=== PATIENT | female | born 1985 | race Caucasian/White ===

== ENCOUNTER → 2019-08-05 08:35 | Outpatient (CLI) | payer BC, SELFPAY ==
[2019-08-05] VITALS (9 sets, daily range): BP systolic 108–121; BP diastolic 60–73; PULSE 67–80; RESP 16–18; TEMP 36.2–36.6; O2SAT 100
== END ==
DX: D64.81 Anemia due to antineoplastic chemotherapy (principal); T45.1X5A Adverse effect of antineoplastic and immunosuppressive drugs, initial encounter
CPT/HCPCS: 36415; 36430; 86850; 86900; 86901; 86920; 86922; J7040; P9016; A4216

== ENCOUNTER → 2019-08-26 10:05 | Outpatient (CLI) | payer BC, SELFPAY ==
[2019-08-26] VITALS (8 sets, daily range): BP systolic 114–136; BP diastolic 66–87; PULSE 64–83; RESP 16–18; TEMP 36.2–36.6; O2SAT 96–98; BMI 31.6
[2019-08-26] MEDS: 0.9 % NaCl (Sterile) Posiflush 10 mL IV (11:07)
[2019-08-26] MEDS: DiphenhydrAMINE 25 MG Capsule PO (11:13)
[2019-08-26] MEDS: Acetaminophen 325 MG Tablet 650 MG PO (11:14)
[2019-08-26] MEDS: 0.9% NaCl VAD Flush IV (15:45)
== END ==
DX: D64.9 Anemia, unspecified (principal)
CPT/HCPCS: 36415; 36430; 86850; 86900; 86901; 86920; 86922; J7040; P9016; A4216

== ENCOUNTER 2019-09-01 16:21 | Day surgery (SDC) | payer BC, SELFPAY ==
[2019-08-26 10:59] VITALS: BMI 31.6
[2019-09-01 16:23] VITALS: BP 146/86; PULSE 94; PULSE 98; RESP 17; TEMP 36.9; O2SAT 99; BMI 32.1
--- NOTE | 2019-09-01 16:38 | ED.VIS.GEN ---
History of Present Illness Chief Complaint: Foreign Body Narrative: Patient is a 34-year-old female who presents with an esophageal impaction. She was eating a sandwich last night. She has felt like this is stuck in her throat. Anytime she tries to eat or drink today she regurgitates this. No history of prior similar symptoms. She is otherwise recently been well. No fevers or cough. No chest pain or shortness of breath. Is have a history of breast cancer and her last chemotherapy treatment was August 03. Her most recent treatment was held due to low counts. Past Medical History - Allergies and Home Meds Allergies/Adverse Reactions: Allergies No Known Allergies Allergy (Verified 09/01/19 16:22) Primary Care Physician: Care Physician,No Primary [Primary Care Provider] - Past Medical History: - - Breast cancer, depression/anxiety Review of Systems All systems negative except as indicated General: Denies: Fever Eyes: Denies: Visual changes - bilaterally ENT: Denies: Bilateral ear pain Cardiovascular: Denies: Chest pain Respiratory: Denies: Dyspnea Gastrointestinal: Reports: Vomiting Musculoskeletal: Denies: Myalgias, Arthralgias Skin: Denies: Rash Neurological: Denies: Headache Physical Exam Vital Signs/Narrative: Vital Signs Temp Pulse Resp BP Pulse Ox 09/01/19 16:23 98.5 F 98 17 146/86 H 99 General: Well nourished, Well developed Head: Normocephalic ENT: - - Oropharynx clear, clear speech Neck: Supple Cardiovascular: Regular rate, Regular rhythm Respiratory: No distress, CTA bilaterally Abdomen: Soft, Nontender Skin: Normal color Neurological: Alert Psychological: Normal affect Diagnostic/Tx/Re-eval Laboratory Results 09/01/19 09/01/19 17:10 17:10 WBC 10.6 RBC 3.11 L Hgb 9.8 L Hct 28.5 L MCV 91.6 MCH 31.5 MCHC 34.4 RDW Std Deviation 59.8 H RDW Coeff of Ollie 19.8 H Plt Count 104 L MPV 9.5 Immature Gran % (Auto) 0.600 Neut % (Auto) 90.8 H Lymph % (Auto) 4.8 L [place] % (Auto) 3.7 Eos % (Auto) 0.0 Baso % (Auto) 0.1 Absolute Neuts (auto) 9.7 H Absolute Lymphs (auto) 0.51 L Nucleated RBC % 0 Differential Comment SEE COMMENT Platelet Estimate MOD DEC RBC Morphology N CHROM Hypochromasia RARE Anisocytosis RARE Macrocytosis RARE Sodium 140 Potassium 3.2 L Chloride 111 H Carbon Dioxide 23.0 Anion Gap 6 BUN 17 Creatinine 0.71 Estim Creat Clear Calc 104.52 Est GFR (MDRD) Af Amer 120 Est GFR (MDRD) Non-Af 99 BUN/Creatinine Ratio 23.8 H Glucose 119 H Calcium 8.8 - Medical Decision Making Labs unremarkable except hemoglobin 9.8 and platelets 104. I obtain this given her reportedly recent low counts. Patient was treated with glucagon without resolution of esophageal impaction. I spoke to surgery on-call, Dr. Patel who will contact the team and plan is for endoscopy. ED Disposition - Plan for ED Patient: Diagnosis: Esophageal obstruction due to food impaction Referrals: Care Physician,No Primary [Primary Care Provider] -
[2019-09-01 17:15] LABS: Absolute Lymphocyte Count 0.51 X10^3/uL (0.83-4.51); Absolute Neutrophil Count 9.7 X10^3/uL (2.0-7.7); Basophil# 0.01 X10^3/uL; Basophil% 0.1 % (0-1); Hematocrit 28.5 % (37-47); Hemoglobin 9.8 g/dL (12.0-15.0); Lymphocyte # 0.51 X10^3/ul (4.0); Lymphocyte % 4.8 % (19-41); Mean Corp Hgb Conc 34.4 g/dL (32-36); Mean Corpuscular Hgb 31.5 pg (27.0-32.0); Mean Corpuscular Volume 91.6 fL (81-99); Mean Platelet Vol. 9.5 fl (6.2-12.0); Monocyte# 0.39 X10^3/uL; Monocyte% 3.7 % (0-10); NRBC Flagged by Analyzer 0 % (0-5); Neutrophil # 9.65 X10^3/uL (2.7-7.7); Neutrophil % 90.8 % (47-70); POSITIVE DIFFERENTIAL YES; Platelet Count 104 K/mm3 (150-450); RBC Distribution Width CV 19.8 % (11.6-14.6); RBC Distribution Width SD 59.8 fl (35.1-43.9); Red Blood Count 3.11 M/mm3 (4.2-5.4); White Blood Count 10.6 K/mm3 (4.4-11.0)
[2019-09-01] MEDS: Ondansetron 4 MG/2 ML Vial IV (17:15)
[2019-09-01] MEDS: Glucagon 1 MG/ML Syringe IV (17:19)
[2019-09-01 17:21] LABS: Differential Indicated SCAN CRITERIA MET
[2019-09-01 17:29] LABS: Anion Gap 6 (5-15); BUN 17 mg/dL (7-18); BUN/Creat Ratio 23.8 RATIO (10-20); Calcium,Total 8.8 mg/dL (8.5-10.1); Chloride 111 mmol/L (98-107); Creatinine, Serum 0.71 mg/dL (0.55-1.02); EST Glomerular Filtration Rate 99 mL/min (>60); Est Glom Filt Rate - Afr Amer 120 mL/min (>60); Estimated Creatinine Clearance 104.52 ml/min; Glucose 119 mg/dL (74-106); Potassium 3.2 mmol/L (3.5-5.1); Sodium Level 140 mmol/L (136-145)
[2019-09-01 17:51] LABS: Anisocytosis RARE; Hypochromasia RARE; Macrocytosis RARE; Platelet Estimate MOD DEC (ADEQ); Red Cell Morphology N CHROM NORMAL (NORM C&C)
[2019-09-01 19:10] VITALS: BP 122/66; BP 146/86; PULSE 80; RESP 18; TEMP 37.1; O2SAT 97
--- NOTE | 2019-09-01 19:12 | PCM.HP.STD ---
Problem List (1) Esophageal obstruction due to food impaction Status: Acute History of Present Illness Date of Admission: 09/01/19 Patient is a 34-year-old female who presents with an esophageal impaction. She was eating a sandwich last night. She has felt like this is stuck in her throat. Anytime she tries to eat or drink today she regurgitates this. No history of prior similar symptoms. She is otherwise recently been well. No fevers or cough. No chest pain or shortness of breath. Is have a history of breast cancer and her last chemotherapy treatment was August 03. Her most recent treatment was held due to low counts. Past Medical History Allergies No Known Allergies Allergy (Verified 09/01/19 16:22) Home Medications: Ambulatory Orders Medication Instructions Recorded Gabapentin [Neurontin] 300 mg PO TID 08/26/19 Sertraline HCl [Zoloft] 100 mg PO QHS 08/26/19 Trazodone HCl 50 mg PO QHS 08/26/19 Smoking Status: Never smoker Review of Systems Gastrointestinal: Reports: Abdominal Pain, Nausea VTE Information - Inpt Only VTE Present on Admission: No VTE Mechan Device Prophylaxis: None VTE Pharm Prophylaxis ordered?: No Reason prophylaxis not ordered:: Treatment Not Indicated Patient Problems: Active and Suspected Problems Esophageal obstruction due to food impaction (Acute) - Physical Exam Vitals/I&O's: Vital Signs Temp Pulse Resp BP Pulse Ox 98.5 F 98 17 146/86 H 99 09/01/19 16:23 09/01/19 16:23 09/01/19 16:23 09/01/19 16:23 09/01/19 16:23 Oxygen Delivery Method Room Air Weight: 199 lb 4.766 oz Body Mass Index (BMI) 32.1 General: Alert, Oriented x3 Lungs: Clear to auscultation Cardiovascular: Regular rate, Regular Rhythm, No murmurs Abdomen: Bowel Sounds Present, Soft, Non Tender, Non-Distended Laboratory Results 09/01/19 17:10: WBC 10.6, RBC 3.11 L, Hgb 9.8 L, Hct 28.5 L, MCV 91.6, MCH 31.5, MCHC 34.4, RDW Std Deviation 59.8 H, RDW Coeff of Ollie 19.8 H, Plt Count 104 L, MPV 9.5, Immature Gran % (Auto) 0.600, Neut % (Auto) 90.8 H, Lymph % (Auto) 4.8 L, [place] % (Auto) 3.7, Eos % (Auto) 0.0, Baso % (Auto) 0.1, Absolute Neuts (auto) 9.7 H, Absolute Lymphs (auto) 0.51 L, Nucleated RBC % 0, Differential Comment SEE COMMENT, Platelet Estimate MOD DEC, RBC Morphology N CHROM, Hypochromasia RARE, Anisocytosis RARE, Macrocytosis RARE 09/01/19 17:10: Sodium 140, Potassium 3.2 L, Chloride 111 H, Carbon Dioxide 23.0, Anion Gap 6, BUN 17, Creatinine 0.71, Estim Creat Clear Calc 104.52, Est GFR (MDRD) Af Amer 120, Est GFR (MDRD) Non-Af 99, BUN/Creatinine Ratio 23.8 H, Glucose 119 H, Calcium 8.8 Assessment/Plan All Active Problems Esophageal obstruction due to food impaction (Acute) Plan will be to perform an EGD and removal of foreign body to esophagus. Risk benefits to include bleeding possible injury to the esophagus have been reviewed with the patient the patient agrees to proceed.
[2019-09-01 19:15] VITALS: BP 118/74; BP 146/86; PULSE 79; RESP 18; O2SAT 97
[2019-09-01 19:20] VITALS: BP 124/66; BP 146/86; PULSE 71; RESP 18; O2SAT 98
[2019-09-01 19:25] VITALS: BP 110/65; BP 146/86; PULSE 73; RESP 18; TEMP 36.7; O2SAT 98
[2019-09-01 19:34] VITALS: BP 146/86
--- NOTE | 2019-09-23 12:25 | OP.EGD_ITS ---
Patient Name: Denise Arias Procedure Date: 09/01/2019 6:46 PM Date of : 1985 Age: 34 Procedure: Upper GI endoscopy Indications: Foreign body in the esophagus Providers: Harrison Patel MD Medicines: See the Anesthesia note for documentation of the administered medications Patient Profile: This is a 34 year old female. Refer to note in patient chart for documentation of history and physical. Complications: No immediate complications. Procedure: Pre-Anesthesia Assessment: - Prior to the procedure, a History and Physical was performed, and patient medications and allergies were reviewed. The patient's tolerance of previous anesthesia was also reviewed. The risks and benefits of the procedure and the sedation options and risks were discussed with the patient. All questions were answered, and informed consent was obtained. Prior Anticoagulants: The patient has taken no previous anticoagulant or antiplatelet agents. ASA Grade Assessment: II - A patient with mild systemic disease. After reviewing the risks and benefits, the patient was deemed in satisfactory condition to undergo the procedure. After obtaining informed consent, the endoscope was passed under direct vision. Throughout the procedure, the patient's blood pressure, pulse, and oxygen saturations were monitored continuously. The gastroscope was introduced through the mouth, and advanced to the second part of duodenum. The upper GI endoscopy was accomplished without difficulty. The patient tolerated the procedure well. Scope In: 7:01:39 PM Scope Out: 7:03:25 PM Total Procedure Duration Time 0 hours 1 minute 46 seconds Findings: Localized moderate erythema was found in the distal esophagus. No biopsies or other specimens were collected for this exam. With the anesthesia the food bolus easily passed into the stomach with just gentle air pressure. The distal esophagus did not have any signs of bleeding but did have some localized erythema most likely secondary to the food. Food (residue) was found on the greater curvature of the stomach. No biopsies or other specimens were collected for this exam. The examined duodenum was normal. No biopsies or other specimens were collected for this exam. Impression: - Erythema in the distal esophagus. No specimens collected. - Food (residue) in the stomach. No specimens collected. - Normal examined duodenum. No specimens collected. Recommendation: - Discharge patient to home. - Resume previous diet. - Continue present medications. - Repeat upper endoscopy (date not yet determined) for surveillance. - Return to primary care physician in 1 week. Procedure Code(s): --- Professional --- 71203, Esophagogastroduodenoscopy, flexible, transoral; diagnostic, including collection of specimen(s) by brushing or washing, when performed (separate procedure) Diagnosis Code(s): --- Professional --- K22.8, Other specified diseases of esophagus T18.108A, Unspecified foreign body in esophagus causing other injury, initial encounter CPT copyright 2017 [employer]. All rights reserved. The codes documented in this report are preliminary and upon nurse orthopedic review may be revised to meet current compliance requirements. MD Harrison Neil MD 09/01/2019 7:11:19 PM This report has been signed electronically. Number of Addenda: 0 Note Initiated On: 09/01/2019 6:46 PM
--- NOTE | 2019-09-23 12:26 | OP.CCLET_ITS ---
09/23/2019 No Primary Care Physician Re : Upper GI endoscopy procedure for Denise Arias Dear Care Physician This procedure was performed on Sunday, September 01, 2019. My impressions and recommendations are as follows: Impressions : - Erythema in the distal esophagus. No specimens collected. - Food (residue) in the stomach. No specimens collected. - Normal examined duodenum. No specimens collected. Recommendations : - Discharge patient to home. - Resume previous diet. - Continue present medications. - Repeat upper endoscopy (date not yet determined) for surveillance. - Return to primary care physician in 1 week. My findings are described in the full procedure note, which is enclosed. If I can be of further assistance, please feel free to contact me at Doctor phone number(s): , Fax: [phone], Work: . Sincerely, MD Harrison Neil MD 09/01/2019 7:11:19 PM This report has been signed electronically.
== END 2019-09-01 19:39 | disposition home or self-care (01) ==
LOC: ED 16:45 → SDC 18:42 → AC 18:45
PROVIDERS: Emergency Provider Emergency Medicine; Visit Provider Surgery
PROC: 0DJ08ZZ Inspection of Upper Intestinal Tract, Via Natural or Artificial Opening Endoscopic (ICD-10-PCS; CPT 43235; principal; 2019-09-01 19:00)
DX: K22.8 Other specified diseases of esophagus (principal); T18.128A Food in esophagus causing other injury, initial encounter; Z85.3 Personal history of malignant neoplasm of breast; F32.9 Major depressive disorder, single episode, unspecified; F41.9 Anxiety disorder, unspecified
CPT/HCPCS: 43235; 36591; 80048; 85025; 99283; A4216; J1610; J2405

== ENCOUNTER 2019-09-08 10:16 | Emergency (ER) | payer BC, SELFPAY ==
[2019-09-08 10:20] VITALS: BP 126/79; PULSE 92; RESP 16; TEMP 36.4; O2SAT 100; BMI 31.4
--- NOTE | 2019-09-08 10:44 | ED.DCSUM_ITS ---
- ER Visit Summary Date of Service: 09/08/19 Chief Complaint: Esophageal impaction History of Present Illness: The patient is a 34 F with no primary care physician. She has a history of breast cancer and sees an oncologist at the main campus at [facility]. She gets chemo every 3 weeks. She had radiation from November 2018 to December 2018. Patient reports that 1 week ago she had what was thought to be an esophageal impaction was seen in the emerge department taken for endoscopy that showed no impaction. She reports that she ate salad and poss at 6 PM yesterday. There was no meat. She was doing fine until 3:00 this morning when she began having pain with swallowing. She states that this is worse and she is now been nausea and vomited 4 times. She reports that there is been a small amount of blood in her emesis. However, she also reports that there is a's blood when she blows her nose as well. Patient denies any difficulty swallowing in between these 2 episodes. She has never had anything like this before. Physical Examination: Vitals: Stable. Afebrile. General: Well-nourished and well-developed. Head: Normocephalic atraumatic. Neck: Supple, no lymphadenopathy. No JVD. Nontender. Cardiovascular: Regular rate and rhythm. No murmurs. Respiratory: No respiratory distress. Clear to auscultation bilaterally. Abdominal: Soft, nontender, nondistended, normal bowel sounds. No guarding, rebound, or peritoneal signs. Back: Nontender. Extremities: Nontender, no edema. Skin: Normal color, no rash. Neurologic: Alert and oriented ?3. Cranial nerves II through XII are intact. Normal strength and sensation. Psych: Normal affect. Emergency Department Course and Treatment: Upon arrival the patient was discussed with Dr. Patel who did the endoscopy the last week. He reports the patient did not have a stricture or narrowing that would require dilation. Suggest trying a GI cocktail. Patient was given that and Zofran here. She is been able to tolerate p.o. without any difficulty. I did discuss the patient possibility of candidal esophagitis. She is on chemo. She was recently on antibiotics. She was given a dose of Diflucan p.o. as well. Treatment Plan: Patient will be discharged on Carafate, Prilosec, Zofran, and Diflucan. Instructed to follow-up with Dr. Patel in 1 to 2 weeks if not improving. Return to the emergency department for any worsening symptoms. Disposition: To home in improved and stable condition. Impression: 1. Esophagitis. This note was generated with [employer] dictation software. It may contain incorrect words, spelling, and punctuation that were not noted in review of the chart prior to signing ED Disposition - Plan for ED Patient: Instructions: Esophagitis, ED YOVANY ESOPHAGITIS Prescriptions: Sucralfate [Carafate] 1 gm PO 4X/DAY #30 tab Fluconazole [Diflucan] 200 mg PO DAILY #21 tab Omeprazole [Prilosec] 20 mg PO DAILY #30 cap Ondansetron [Zofran Odt] 4 mg PO Q8H PRN PRN #10 tab PRN Reason: Nausea Referrals: Harrison Patel MD [STAFF PHYSICIAN] - 10-14 Days if not better
[2019-09-08] MEDS: Mag Hydrox/Al Hydrox/Simeth 30 ML UDC PO (11:12)
[2019-09-08] MEDS: Ondansetron 4 MG/2 ML Vial IV (11:12)
[2019-09-08] MEDS: Fluconazole 100 MG Tablet 400 MG PO (11:19)
[2019-09-08 12:20] VITALS: BP 128/81; PULSE 72; RESP 18; O2SAT 99
== END 2019-09-08 12:21 | disposition home or self-care (01) ==
LOC: ED 11:21
PROVIDERS: Emergency Provider Emergency Medicine
DX: K20.9 Esophagitis, unspecified (principal); C50.919 Malignant neoplasm of unspecified site of unspecified female breast
CPT/HCPCS: 36591; 96374; 96375; 96376; 99285; J7030; J1610; J2405

== ENCOUNTER → 2019-11-11 10:21 | Outpatient (CLI) | payer BC, SELFPAY ==
[2019-11-12] VITALS (7 sets, daily range): BP systolic 110–127; BP diastolic 54–75; PULSE 67–89; RESP 16–18; TEMP 36.6–36.8; O2SAT 98–100; BMI 31.4
[2019-11-12] MEDS: DiphenhydrAMINE 25 MG Capsule PO (10:52)
[2019-11-12] MEDS: 0.9 % NaCl (Sterile) Posiflush 10 mL IV (10:52)
[2019-11-12] MEDS: Acetaminophen 325 MG Tablet 650 MG PO (10:52)
== END ==
DX: C50.911 Malignant neoplasm of unspecified site of right female breast (principal)
CPT/HCPCS: 36430; 36591; 86850; 86900; 86901; 86920; 86922; J7040; P9016; A4216

== ENCOUNTER 2020-01-20 20:46 | Emergency (ER) | payer BC, SELFPAY ==
[2019-11-12 10:21] VITALS: BMI 31.4
[2020-01-20 20:47] VITALS: BP 136/81; PULSE 128; RESP 18; TEMP 36.6; O2SAT 100; BMI 31.4
--- NOTE | 2020-01-20 21:07 | ED.DCSUM_ITS ---
History of Present Illness Chief Complaint: Fever Informant: Patient Onset: Days Context: Gradual Onset Current Severity: Mild Maximum Severity: Moderate Narrative: She presents with fever, headache, body aches, nausea for the past 4 days. She reports fevers been up to 102. She does have a history of breast cancer and is current on immunotherapy and chemotherapy. Last chemotherapy treatment was approximately 10 days ago. Patient states she had similar symptoms in late November. She was admitted at the [facility] in [place]. After 4 days of antibiotics her symptoms seem to improve. No definitive source of infection was ever identified on that visit. - Past Medical History (1) Breast cancer Status: Chronic (2) Depression Status: Chronic Past Medical History - Allergies and Home Meds Allergies/Adverse Reactions: Allergies No Known Allergies Allergy (Verified 09/08/19 10:17) Primary Care Physician: [facility] Doctor,Out of [NON-STAFF] - Surgical History: - - Bilateral mastectomy Smoking Status: Never smoker Review of Systems General: Reports: Fever Eyes: Denies: Visual changes - bilaterally ENT: Denies: Bilateral ear pain Cardiovascular: Denies: Chest pain Respiratory: Reports: Cough - Normal cough. Denies: Dyspnea Gastrointestinal: Reports: Nausea. Denies: Abdominal pain Musculoskeletal: Reports: Myalgias Skin: Denies: Rash Neurological: Reports: Headache. Denies: Parasthesia, Numbness Hematologic: Denies: Easy bruising, Easy bleeding Allergy: Denies: Uticaria Physical Exam Vital Signs/Narrative: Vital Signs Temp Pulse Resp BP Pulse Ox 01/20/20 20:47 97.8 F 128 H 18 136/81 H 100 Inital Vital Signs reviewed: Yes General: Well nourished, Well developed Head: Normocephalic ENT: Moist mucous membranes Neck: Supple Cardiovascular: Regular rate, Regular rhythm Respiratory: No distress, CTA bilaterally Abdomen: Soft, Nontender Extremities: Nontender Skin: Normal color Neurological: Alert, Oriented x3, Normal Strength, Normal Sensation Psychological: Normal affect Diagnostic/Tx/Re-eval Impressions Chest X-Ray 01/20/20 21:40 IMPRESSION: Elevated left diaphragm with overlying lung atelectasis. Left subclavian Port-A-Cath terminates in the proximal superior vena cava. Tubing artifact over the left upper and lower lung zone. Electronically Signed: Telma Langston MD at 22:05 EDT , Service support , 01/20/20 21:40 Chest 1 View (Portable) [RAD] Stat Laboratory Results 01/20/20 01/20/20 01/20/20 21:15 21:39 21:39 WBC 8.3 RBC 2.86 L Hgb 9.2 L Hct 28.0 L MCV 97.9 MCH 32.2 H MCHC 32.9 RDW Std Deviation 64.1 H RDW Coeff of Ollie 18.2 H Plt Count 380 MPV 8.7 Immature Gran % (Auto) 0.500 Neut % (Auto) 77.8 H Lymph % (Auto) 7.8 L [place] % (Auto) 12.6 H Eos % (Auto) 1.2 Baso % (Auto) 0.1 Absolute Neuts (auto) 6.5 Absolute Lymphs (auto) 0.65 L Nucleated RBC % 0 Differential Comment SCANNED Sodium 138 Potassium 3.2 L Chloride 107 Carbon Dioxide 25.0 Anion Gap 6 BUN 11 Creatinine 0.77 Estim Creat Clear Calc 96.37 Est GFR (MDRD) Af Amer 111 Est GFR (MDRD) Non-Af 91 BUN/Creatinine Ratio 14.4 Glucose 125 H Lactic Acid Calcium 8.4 L Total Bilirubin 0.50 AST 17 ALT 13 Alkaline Phosphatase 87 Total Protein 8.1 Albumin 3.3 Globulin 4.8 H Albumin/Globulin Ratio 0.7 L Urine Color Urine Clarity Urine pH Ur Specific [place] Urine Protein Urine Glucose (UA) Urine Ketones Urine Occult Blood Urine Nitrite Urine Bilirubin Urine Urobilinogen Ur Leukocyte Esterase Urine RBC Urine WBC Ur Squamous Epith Cells Urine Bacteria Urine Mucus COVID-19 (SHERLY) Negative 01/20/20 01/20/20 21:39 23:00 WBC RBC Hgb Hct MCV MCH MCHC RDW Std Deviation RDW Coeff of Ollie Plt Count MPV Immature Gran % (Auto) Neut % (Auto) Lymph % (Auto) [place] % (Auto) Eos % (Auto) Baso % (Auto) Absolute Neuts (auto) Absolute Lymphs (auto) Nucleated RBC % Differential Comment Sodium Potassium Chloride Carbon Dioxide Anion Gap BUN Creatinine Estim Creat Clear Calc Est GFR (MDRD) Af Amer Est GFR (MDRD) Non-Af BUN/Creatinine Ratio Glucose Lactic Acid 1.3 Calcium Total Bilirubin AST ALT Alkaline Phosphatase Total Protein Albumin Globulin Albumin/Globulin Ratio Urine Color Yellow Urine Clarity Clear Urine pH 6.0 Ur Specific [place] 1.010 Urine Protein 30 H Urine Glucose (UA) Normal Urine Ketones Negative Urine Occult Blood 50 H Urine Nitrite Negative Urine Bilirubin Negative Urine Urobilinogen Normal Ur Leukocyte Esterase 25 H Urine RBC 0 SEEN Urine WBC 0 SEEN Ur Squamous Epith Cells 0 SEEN Urine Bacteria 0 SEEN Urine Mucus RARE COVID-19 (SHERLY) - Medical Decision Making Patient did develop a fever here of 101.1. She was given p.o. Tylenol. Blood cultures are pending. Covid test is negative. White count is normal with a slight left shift. Chest x-ray shows no acute findings. I spoke with the patient's oncologist, Dr. Boggs at [facility]. She states that if the patient is more comfortable would be reasonable to observe her overnight and repeat her lab work in the morning. Initial blood culture should be back tomorrow. She advises that if the patient looks well she is comfortable holding antibiotics at this time. After speaking with the patient she would feel more comfortable observed in the hospital. A month or so ago patient had similar illness where her white count was normal 1 day and then extremely high the following day. She is concerned that that will happen again and require further testing and IV antibiotics. Addendum: After arranges were made for patient to be hospitalized for observation, she called the nurse to the room and states that she had changed her mind and would like to go home. She states she will rest better at home. She has an appointment with her oncologist in 2 days and said that blood work will be rechecked at that time. If she worsens in any way in the meantime she will return. If there are any abnormalities on her initial blood cultures she will be called. ED Disposition - Plan for ED Patient: Disposition: Home or Assisted Living Diagnosis: Fever Instructions: ED FUO Adult Referrals: Town Doctor,Out of [NON-STAFF] - Additional Instructions: Follow-up with your oncologist on Saturday as scheduled.
--- NOTE | 2020-01-20 21:40 | RAD_ITS ---
STUDY: X-RAY CHEST REASON FOR EXAM: Female, 34 years old. fever with cough. pt is on chemo TECHNIQUE: 1 view COMPARISON: None. FINDINGS: Left subclavian Port-A-Cath terminates in the proximal superior vena cava. The right lung is expanded and clear. There is elevation of the left diaphragm with overlying lung atelectasis of an acute or chronic nature. There is tubing artifact over the left lower lung zone and diaphragm. Normal size heart. Normal mediastinum and chele. Normal visualized pulmonary arteries. Normal visualized aortic arch and descending thoracic aorta. Normal visualized thoracic spine. Normal visualized ribs, clavicles, and shoulders. There is no demonstrated abnormality of the visualized soft tissue structures of the upper abdomen. RAD/Chest 1 View (Portable) IMPRESSION: Elevated left diaphragm with overlying lung atelectasis. Left subclavian Port-A-Cath terminates in the proximal superior vena cava. Tubing artifact over the left upper and lower lung zone. Electronically Signed: Telma Langston MD at 22:05 EDT , Service support ,
[2020-01-20] MEDS: Acetaminophen 500 MG Tablet 1000 MG PO (21:56)
[2020-01-20] MEDS: 0.9% Normal Saline 1,000 ML 150 ML IV (21:56)
[2020-01-20 22:02] VITALS: BP 133/78; PULSE 103; RESP 14; TEMP 38.4; O2SAT 99
[2020-01-20 22:17] LABS: ALB/GLOB Ratio 0.7 RATIO (0.9-2.4); AST(SGOT) 17 U/L (15-37); Alanine Aminotransfer ALT/SGPT 13 U/L (13-56); Albumin, Serum 3.3 g/dL (3.2-5.0); Alkaline Phosphatase 87 U/L (45-117); Anion Gap 6 (5-15); BUN 11 mg/dL (7-18); BUN/Creat Ratio 14.4 RATIO (10-20); Calcium,Total 8.4 mg/dL (8.5-10.1); Chloride 107 mmol/L (98-107); Creatinine, Serum 0.77 mg/dL (0.55-1.02); EST Glomerular Filtration Rate 91 mL/min (>60); Est Glom Filt Rate - Afr Amer 111 mL/min (>60); Estimated Creatinine Clearance 96.37 ml/min; Globulin 4.8 g/dL (2.2-4.2); Glucose 125 mg/dL (74-106); Potassium 3.2 mmol/L (3.5-5.1); Protein, Total 8.1 g/dL (6.4-8.2); Sodium Level 138 mmol/L (136-145)
[2020-01-20 22:28] LABS: Absolute Lymphocyte Count 0.65 X10^3/uL (0.83-4.51); Absolute Neutrophil Count 6.5 X10^3/uL (2.0-7.7); Basophil# 0.01 X10^3/uL; Basophil% 0.1 % (0-1); Eosinophils% 1.2 % (0-5); Hemoglobin 9.2 g/dL (12.0-15.0); Lymphocyte # 0.65 X10^3/ul (4.0); Lymphocyte % 7.8 % (19-41); Mean Corp Hgb Conc 32.9 g/dL (32-36); Mean Corpuscular Hgb 32.2 pg (27.0-32.0); Mean Corpuscular Volume 97.9 fL (81-99); Mean Platelet Vol. 8.7 fl (6.2-12.0); Monocyte# 1.05 X10^3/uL; Monocyte% 12.6 % (0-10); NRBC Flagged by Analyzer 0 % (0-5); Neutrophil # 6.49 X10^3/uL (2.7-7.7); Neutrophil % 77.8 % (47-70); POSITIVE MORPHOLOGY YES; Platelet Count 380 K/mm3 (150-450); RBC Distribution Width CV 18.2 % (11.6-14.6); RBC Distribution Width SD 64.1 fl (35.1-43.9); Red Blood Count 2.86 M/mm3 (4.2-5.4); White Blood Count 8.3 K/mm3 (4.4-11.0)
[2020-01-20 22:28] LABS: Probe Check PASS; Specimen Processing Control PASS
[2020-01-20 22:30] LABS: Differential Indicated SCAN CRITERIA MET
[2020-01-20 22:48] LABS: Lactic Acid 1.3 mmol/L (0.4-1.9)
[2020-01-20 23:04] LABS: Differential Comment SCANNED
[2020-01-20 23:06] LABS: Bacteria 0 SEEN /hpf (None Seen); Red Blood Cells-Urine 0 SEEN /hpf (0-5); Squamous Epithelial Cells - UA 0 SEEN /hpf (5-10); White Blood Cells 0 SEEN /hpf (0-5)
[2020-01-20 23:08] VITALS: BP 117/70; PULSE 101; RESP 15; O2SAT 98
[2020-01-20 23:10] LABS: Color, Urine Yellow (Yellow); Glucose, Dipstick Normal (Normal); Ketone-Dipstick Negative (Negative); Leukocyte Esterase-Dipstick 25 /ul (Negative); Nitrite-Dipstick Negative (Negative); Occult Blood-Urine 50 /ul (Negative); Protein-Dipstick 30 mg/dl (Negative); Urine Bilirubin Dipstick Negative (Negative); Urine Clarity Clear (Clear); Urine Urobilinogen Normal (Normal)
[2020-01-20 23:20] LABS: Mucous, Urine RARE /hpf (<or=2+)
--- NOTE | 2020-01-20 23:43 | HP.PCM_ITS ---
History of Present Illness The patient is a 34 year old F [] SATURDAY. Fever, coughm [place], [place] Breast on chemo, last 1 week ago last Past Medical History Past Medical History (Chronic Problems): Chronic Problems Breast cancer (Chronic) Depression (Chronic) Allergies No Known Allergies Allergy (Verified 09/08/19 10:17) Home Medications: Ambulatory Orders Medication Instructions Recorded Gabapentin [Neurontin] 300 mg PO TID 08/26/19 Sertraline HCl [Zoloft] 100 mg PO QHS 08/26/19 Trazodone HCl 50 mg PO QHS 08/26/19 Fluconazole [Diflucan] 200 mg PO DAILY #21 tab 09/08/19 Omeprazole [Prilosec] 20 mg PO DAILY #30 cap 09/08/19 Ondansetron [Zofran Odt] 4 mg PO Q8H PRN PRN #10 tab 09/08/19 Sucralfate [Carafate] 1 gm PO 4X/DAY #30 tab 09/08/19 Surgical History: - - Bilateral mastectomy Smoking Status: Never smoker Tobacco Use: Non-smoker Patient Problems: Active and Suspected Problems Fever (Acute) - Physical Exam Vitals/I&O's: Vital Signs Temp Pulse Resp BP Pulse Ox 101.1 F H 101 H 15 117/70 98 01/20/20 22:02 01/20/20 23:08 01/20/20 23:08 01/20/20 23:08 01/20/20 23:08 Oxygen Delivery Method Room Air Weight: 194 lb 9.6 oz Body Mass Index (BMI) 31.4 Laboratory Results 01/20/20 21:15: COVID-19 (SHERLY) Negative 01/20/20 21:39: WBC 8.3, RBC 2.86 L, Hgb 9.2 L, Hct 28.0 L, MCV 97.9, MCH 32.2 H , MCHC 32.9, RDW Std Deviation 64.1 H, RDW Coeff of Ollie 18.2 H, Plt Count 380, MPV 8.7, Immature Gran % (Auto) 0.500, Neut % (Auto) 77.8 H, Lymph % (Auto) 7.8 L, [place] % (Auto) 12.6 H, Eos % (Auto) 1.2, Baso % (Auto) 0.1, Absolute Neuts (auto) 6.5, Absolute Lymphs (auto) 0.65 L, Nucleated RBC % 0, Differential Comment SCANNED 01/20/20 21:39: Sodium 138, Potassium 3.2 L, Chloride 107, Carbon Dioxide 25.0, Anion Gap 6, BUN 11, Creatinine 0.77, Estim Creat Clear Calc 96.37, Est GFR (MDRD) Af Amer 111, Est GFR (MDRD) Non-Af 91, BUN/Creatinine Ratio 14.4, Glucose 125 H, Calcium 8.4 L, Total Bilirubin 0.50, AST 17, ALT 13, Alkaline Phosphatase 87, Total Protein 8.1, Albumin 3.3, Globulin 4.8 H, Albumin/Globulin Ratio 0.7 L 01/20/20 21:39: Lactic Acid 1.3 01/20/20 23:00: Urine Color Yellow, Urine Clarity Clear, Urine pH 6.0, Ur Specific [place] 1.010, Urine Protein 30 H, Urine Glucose (UA) Normal, Urine Ketones Negative, Urine Occult Blood 50 H, Urine Nitrite Negative, Urine Bilirubin Negative, Urine Urobilinogen Normal, Ur Leukocyte Esterase 25 H, Urine RBC 0 SEEN, Urine WBC 0 SEEN, Ur Squamous Epith Cells 0 SEEN, Urine Bacteria 0 SEEN, Urine Mucus RARE Current Medications Sodium Chloride () 1,000 mls @ 150 mls/hr IV .[id number] [facility] Last Admin: 01/20/20 21:56 Dose: 150 mls/hr Documented by: Assessment/Plan All Active Problems Esophageal obstruction due to food impaction (Acute) Fever (Acute)
[2020-01-20 23:44] VITALS: BP 117/70; PULSE 91; RESP 17; TEMP 37.5; O2SAT 93
[2020-01-21 00:10] VITALS: BP 116/78; PULSE 83; RESP 14; TEMP 37.6; O2SAT 98
--- NOTE | 2020-01-21 00:55 | ED.RN ---
port flushed with normal saline, pt refused heparin flush. md aware. no new orders placed.
== END 2020-01-21 00:11 | disposition home or self-care (01) ==
PROVIDERS: Emergency Provider Emergency Medicine
DX: R50.9 Fever, unspecified (principal); R05 Cough; R51 Headache; R11.0 Nausea; Z85.3 Personal history of malignant neoplasm of breast; F32.9 Major depressive disorder, single episode, unspecified
CPT/HCPCS: 36591; 71045; 80053; 81001; 83605; 85025; 87040; 87086; 87635; 94799; 96360; 99285; J7030; A4216; U0003

== ENCOUNTER → 2020-02-25 15:53 | Outpatient (CLI) | payer BC, SELFPAY ==
[2020-02-25] MEDS: 0.9% Normal Saline 1,000 ML 999 ML IV ×2 (16:00→17:23)
[2020-02-25 16:06] VITALS: BP 120/77; PULSE 100; RESP 18; TEMP 35.9; O2SAT 100; BMI 20.1
[2020-02-25] MEDS: Ondansetron 4 MG/2 ML Vial IV (16:19)
== END ==
DX: E86.0 Dehydration (principal)
CPT/HCPCS: 96361 ×3; 96374; J7030; A4216; J2405

== ENCOUNTER → 2020-03-10 09:30 | Outpatient (CLI) | payer BC, SELFPAY ==
[2020-02-25 16:06] VITALS: BMI 20.1
[2020-03-10 09:46] VITALS: BP 130/75; PULSE 100; RESP 16; TEMP 36.6; O2SAT 98
[2020-03-10] MEDS: 0.9% Normal Saline 1,000 ML 999 ML IV (09:56)
[2020-03-10] MEDS: proMETHazine 25 MG/ML Syringe 12.5 MG IV (09:57)
[2020-03-10 11:12] VITALS: BP 111/68; PULSE 81; RESP 16; O2SAT 98
== END ==
DX: C50.911 Malignant neoplasm of unspecified site of right female breast (principal); R11.0 Nausea; T45.1X5A Adverse effect of antineoplastic and immunosuppressive drugs, initial encounter
CPT/HCPCS: 96361; 96374; J7030; A4216

== ENCOUNTER → 2020-03-24 10:31 | Outpatient (CLI) | payer BC, SELFPAY ==
[2020-02-25 16:06] VITALS: BMI 20.1
[2020-03-24 11:02] VITALS: BP 134/68; PULSE 88; RESP 16; TEMP 37.3; O2SAT 96; BMI 31.4
[2020-03-24] MEDS: 0.9% Normal Saline 1,000 ML 999 ML IV (11:05)
[2020-03-24] MEDS: 0.9 % NaCl (Sterile) Posiflush 10 mL IV (11:05)
[2020-03-24] MEDS: 0.9% NaCl VAD Flush IV (12:34)
[2020-03-24 12:37] VITALS: BP 107/59; PULSE 70; RESP 14; TEMP 37.1; O2SAT 98
== END ==
DX: C50.911 Malignant neoplasm of unspecified site of right female breast (principal); R11.0 Nausea; T45.1X5A Adverse effect of antineoplastic and immunosuppressive drugs, initial encounter
CPT/HCPCS: 96361; 96374; J7030; A4216

== ENCOUNTER → 2021-01-18 11:22 | Outpatient (CLI) | payer BC, MEDICARE, SELFPAY ==
[2021-01-18] MEDS: 0.9% Normal Saline 1,000 ML 999 ML IV (11:48)
[2021-01-18 11:49] VITALS: BP 109/75; PULSE 89; RESP 16; TEMP 36.9; O2SAT 99
[2021-01-18 13:33] VITALS: BP 132/66; PULSE 81
== END ==
DX: C50.919 Malignant neoplasm of unspecified site of unspecified female breast (principal); E86.0 Dehydration; R11.2 Nausea with vomiting, unspecified; T45.1X5A Adverse effect of antineoplastic and immunosuppressive drugs, initial encounter
CPT/HCPCS: 96360; J7030; A4216

== ENCOUNTER → 2021-01-19 11:35 | Outpatient (CLI) | payer BC, SELFPAY ==
[2021-01-19 11:40] VITALS: BP 120/74; PULSE 85; RESP 16; TEMP 36.1; O2SAT 97
[2021-01-19] MEDS: 0.9% Normal Saline 1,000 ML 999 ML IV (11:42)
== END ==
DX: C50.919 Malignant neoplasm of unspecified site of unspecified female breast (principal); E86.0 Dehydration; R11.2 Nausea with vomiting, unspecified; T45.1X5A Adverse effect of antineoplastic and immunosuppressive drugs, initial encounter
CPT/HCPCS: 96360; J7030; A4216

== ENCOUNTER → 2021-02-01 11:31 | Outpatient (CLI) | payer BC, SELFPAY ==
[2021-02-01 11:51] VITALS: BP 133/74; PULSE 77; RESP 16; TEMP 36.2; O2SAT 97; BMI 29.8
[2021-02-01] MEDS: 0.9% Normal Saline 1,000 ML 999 ML IV (12:08)
[2021-02-01] MEDS: LORazepam 2 MG/ML Syringe IV (12:32)
[2021-02-01 13:21] VITALS: BP 132/75; PULSE 70; RESP 16; O2SAT 99
== END ==
DX: C50.919 Malignant neoplasm of unspecified site of unspecified female breast (principal); E86.0 Dehydration; R11.2 Nausea with vomiting, unspecified; T45.1X5A Adverse effect of antineoplastic and immunosuppressive drugs, initial encounter
CPT/HCPCS: 96360; J7030; A4216

== ENCOUNTER → 2021-02-08 11:30 | Outpatient (CLI) | payer BC, MEDICARE, SELFPAY ==
[2021-02-08] MEDS: 0.9% Normal Saline 1,000 ML 999 ML IV (11:57)
[2021-02-08 12:01] VITALS: BP 123/73; PULSE 77; RESP 16; TEMP 36.7; O2SAT 98
[2021-02-08] MEDS: LORazepam 2 MG/ML Syringe IV (12:42)
== END ==
DX: C50.919 Malignant neoplasm of unspecified site of unspecified female breast (principal); E86.0 Dehydration; R11.2 Nausea with vomiting, unspecified; T45.1X5A Adverse effect of antineoplastic and immunosuppressive drugs, initial encounter
CPT/HCPCS: 96360; J7030